=== PATIENT | female | born 2000 | race Caucasian/White ===

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

== ENCOUNTER 2021-02-17 15:20 | Emergency (ER) | payer OTHER ==
[~2021-02-17 15:20] MED LIST changes: +CYCLOBENZAPRINE10 MG PO; +NORCO 5-325 TA1 EACH PO
[2021-02-17 16:28] LABS: BASOPHIL 0.4 % (0-2); EOSINOPHIL 4.5 % (0-5); HCT 43.1 % (37.0-47.0); LYMPHOCYTE 27.6 % (15-48); MCH 28.9 pg (25.0-31.0); MCHC 32.5 g/dL (32.0-36.0); MONOCYTE 12.8 % (0-12); MPV 9.6 fL (6.0-9.5); NEUTROPHIL 54.5 % (41-80); NRBC 0; PLT 240 K/uL (150-400); RBC 4.84 M/uL (4.20-5.40); RDW 13.2 % (11.5-14.0); WBC 4.5 K/uL (4.0-10.5)
[2021-02-17 16:32] LABS: BILIRUBIN NEGATIVE (NEGATIVE); BLOOD NEGATIVE Ery/uL (NEGATIVE); CLARITY CLEAR (CLEAR); COLOR YELLOW (YELLOW); GLUCOSE (U) NORMAL (NORMAL); LEUKOCYTES NEGATIVE Leu/uL (NEGATIVE); NITRITE NEGATIVE (NEGATIVE); PROTEIN 1+ mg/dL (NEGATIVE); SPECIFIC GRAVITY 1.025 (1.001-1.030); UROBILINOGEN 0.2 mg/dL (0.2-1.0); pH 6.5 (5.0-9.0)
[2021-02-17 16:36] LABS: HCG (URINE) SCREEN NEGATIVE (NEGATIVE)
[2021-02-17 16:37] LABS: AMPHETAMINES NEGATIVE (NEGATIVE); BARBITURATES NEGATIVE (NEGATIVE); ECSTASY (MDMA) NEGATIVE (NEGATIVE); MARIJUANA (THC) NEGATIVE (NEGATIVE); METHADONE NEGATIVE (NEGATIVE); OPIATES NEGATIVE (NEGATIVE); OXYCODONE NEGATIVE (NEGATIVE)
[2021-02-17 16:47] LABS: ALBUMIN 3.8 g/dL (3.4-5.0); BILIRUBIN - TOTAL 0.3 mg/dL (0.2-1.0); BUN/CREAT RATIO (CALC) 18.6 RATIO; C-REACTIVE PROTEIN 0.3 mg/dL (<=0.90); CREATININE 0.59 mg/dL (0.51-0.95); GLOBULIN (CALCULATION) 4.6 g/dL; POTASSIUM 4.1 mmol/L (3.5-5.1); TOTAL PROTEIN 8.4 g/dL (6.4-8.2)
[2021-02-17] MEDS ORDERED: DECADRON4 MG PO (19:05)
[2021-02-17] MEDS ORDERED: VENTOLIN HFA18 GM PO (19:05)
== END 2021-02-17 19:32 | disposition home or self-care (01) ==
LOC: FER 15:20
PROVIDERS: Internal Medicine
DX: U07.1 COVID-19 (principal); Z79.3 Long term (current) use of hormonal contraceptives; Z88.8 Allergy status to other drugs, medicaments and biological substances
CPT/HCPCS: 36415; 71045; 80053; 80305; 81003; 82150; 83690; 84703; 85025; 86140; J7030; U0002

== ENCOUNTER 2021-05-18 21:05 | Emergency (ER) | payer OTHER ==
[~2021-05-18 21:05] MED LIST changes: +DECADRON4 MG PO; +VENTOLIN HFA18 GM PO
[2021-05-18 21:53] LABS: BILIRUBIN NEGATIVE (NEGATIVE); BLOOD NEGATIVE Ery/uL (NEGATIVE); CLARITY CLEAR (CLEAR); COLOR YELLOW (YELLOW); GLUCOSE (U) NORMAL (NORMAL); LEUKOCYTES NEGATIVE Leu/uL (NEGATIVE); NITRITE NEGATIVE (NEGATIVE); PROTEIN NEGATIVE (NEGATIVE); UROBILINOGEN 0.2 mg/dL (0.2-1.0)
[2021-05-18] MEDS ORDERED: FLEXERIL5 MG PO (23:29)
[2021-05-18] MEDS ORDERED: MEDROL 4MG DOSEP4 MG PO (23:29)
== END 2021-05-18 23:59 | disposition home or self-care (01) ==
LOC: FER 21:05
PROVIDERS: Emergency Medicine
DX: M54.50 Low back pain, unspecified (principal); Z88.8 Allergy status to other drugs, medicaments and biological substances
CPT/HCPCS: 81003; 99283; J1885

== ENCOUNTER 2022-04-16 23:05 | Emergency (ER) | payer OTHER ==
[~2022-04-16 23:05] MED LIST changes: +FLEXERIL5 MG PO; +MEDROL 4MG DOSEP4 MG PO
== END 2022-04-17 01:40 | disposition home or self-care (01) ==
LOC: FER 23:05
DX: S90.02XA Contusion of left ankle, initial encounter (principal); X50.9XXA Other and unspecified overexertion or strenuous movements or postures, initial encounter
CPT/HCPCS: 73610; J1885